=== PATIENT | female | born 1950 | race Caucasian/White ===

== ENCOUNTER 2021-11-12 07:46 | Day surgery (SDC) | payer MEDICARE, BC ==
[~2021-11-12] VITALS: Ht 162.6 cm; Wt 46.4 kg
[~2021-11-12 07:46] MED LIST: ALBU8.5H17 IH; APIX5TAB3 PO; ASPI-1071 PO; CARV6.253 PO; CEFI400C PO; FURO20TA4 PO; LISI2.5T14 PO; POTA10TA37 PO; PRED20TA PO
[2021-11-12] MEDS ORDERED: MIDAZolam 1mg/ml 10ml vial IV ONE (08:15)
[2021-11-12] MEDS ORDERED: fentaNYL/PF 50MCG/1 ML 2ML syringe IV ONE (08:15)
[2021-11-12] MEDS ORDERED: glycopyrrolate 0.2mg/ml inj IV ONE (08:15)
[2021-11-12] MEDS ORDERED: normal saline 1000ml 1,000 ML IV SCH (08:15)
[2021-11-12 08:30] VITALS: BP 149/84
[2021-11-12] MEDS ORDERED: CARV-50 PO (08:47)
[2021-11-12] MEDS ORDERED: ASPI-1397 PO (08:47)
[2021-11-12] MEDS ORDERED: APIX5TAB3 PO (08:47)
[2021-11-12] MEDS ORDERED: CEFI400C PO (08:47)
[2021-11-12] MEDS ORDERED: PRED5TAB PO (08:47)
[2021-11-12] MEDS ORDERED: POTA-192 PO (08:47)
[2021-11-12] MEDS ORDERED: FURO-150 PO (08:47)
--- NOTE | 2021-11-12 09:00 | NUR ---
Dr Romero in with patient. Patient cardioversion cancelled as patient is in sinus rhythm.
--- NOTE | 2021-11-12 09:15 | NUR ---
Patient discharged. Continue home medications as ordered. Explained to her that Dr. Romero's office should be calling her tomorrow to schedule her pacemaker procedure and they will advise her at that time when to stop her eliquis.
== END 2021-11-12 09:15 | disposition home or self-care (01) ==
LOC: SSTAY O 07:46
PROVIDERS: ATTEND Internal Medicine Cardiovascular Disease
DX: I48.0 Paroxysmal atrial fibrillation (principal); Z53.8 Procedure and treatment not carried out for other reasons; J43.9 Emphysema, unspecified; I50.9 Heart failure, unspecified; N18.9 Chronic kidney disease, unspecified; F17.210 Nicotine dependence, cigarettes, uncomplicated; Z87.01 Personal history of pneumonia (recurrent); Z72.89 Other problems related to lifestyle; Z79.899 Other long term (current) drug therapy
CPT/HCPCS: 93005

== ENCOUNTER 2021-11-16 06:39 | Day surgery (SDC) | payer MEDICARE, BC ==
[~2021-11-16] VITALS: Ht 162.6 cm; Wt 47.1 kg
[2021-11-16] VITALS (8 sets, daily range): BP systolic 115–143; BP diastolic 78–91
[~2021-11-16 06:39] MED LIST changes: -ALBU8.5H17 IH; -ASPI-1071 PO; +ASPI-1397 PO; +CARV-50 PO; -CARV6.253 PO; +FURO-150 PO; -FURO20TA4 PO; -LISI2.5T14 PO; +POTA-192 PO; -POTA10TA37 PO; -PRED20TA PO; +PRED5TAB PO
[2021-11-16] MEDS ORDERED: normal saline 1000ml 1,000 ML IV SCH ×2 (07:05→13:15)
[2021-11-16] MEDS ORDERED: VANCOMYCIN 1GM/200ML IVPB 200 ML IV ONE (07:10)
[2021-11-16] MEDS ORDERED: cefazolin/dext.iso 2gm/50ml 50 ML IV ONE (07:10)
[2021-11-16] MEDS ORDERED: LIDOCAINE 2% w/EPI 1:100:000 30mL injection MDV**cath lab 1 only ONE (08:00)
[2021-11-16] MEDS ORDERED: ceFAZolin 1000mg inj ONE (08:00)
[2021-11-16] MEDS ORDERED: midazolam 1 mg/ML 2ml injection ONE ×2 (08:00→09:58)
[2021-11-16] MEDS ORDERED: fentaNYL/PF 50MCG/1 ML 2ML syringe ONE (08:00)
[2021-11-16] MEDS ORDERED: iohexol 350 MG/ML 50ML vial IV ONE (08:04)
[2021-11-16 08:12] LABS: ALBUMIN 3.4 G/DL (3.4-5.0); ANION GAP 11 (8-16); BLOOD UREA NITROGEN 19 MG/DL (7-18); BUN/CREATININE RATIO 21.6 (6.6-38.0); CALCIUM 8.8 MG/DL (8.5-10.1); CHLORIDE 105 MMOL/L (99-107); CREATININE 0.88 MG/DL (0.40-0.90); MAGNESIUM 2.2 MG/DL (1.5-2.4); POTASSIUM 3.9 MMOL/L (3.5-5.1); SODIUM 143 MMOL/L (135-145); eGFR 64 ML/MIN
[2021-11-16 08:15] LABS: GLUCOSE 95 MG/DL (70-104)
[2021-11-16 08:52] LABS: BASOPHILS % (AUTO) 0.7 % (0-1); EOSINOPHILS # (AUTO) 0.1 X10'3 (0-0.9); EOSINOPHILS % (AUTO) 1.1 % (0-6); HEMATOCRIT 39.3 % (35.0-45.0); HEMOGLOBIN 13.2 g/dl (12.0-16.0); LYMPHOCYTES # (AUTO) 1.6 X10'3 (1.1-4.8); LYMPHOCYTES % (AUTO) 26.2 % (21-51); MEAN CORPUSCULAR HEMOGLOBIN 32.5 PG (27.0-31.0); MEAN CORPUSCULAR HGB CONC 33.6 g/dL (33.0-36.5); MEAN CORPUSCULAR VOLUME 96.7 FL (78-98); MONOCYTES # (AUTO) 0.7 X10'3 (0-0.9); MONOCYTES % (AUTO) 11.8 % (2-12); NEUTROPHILS # (AUTO) 3.6 X10'3 (1.8-7.7); NEUTROPHILS % (AUTO) 60.2 % (42-75); PLATELET COUNT 152 X10'3 (140-440); RED BLOOD COUNT 4.06 X10'6 (4.20-5.60); RED CELL DISTRIBUTION WIDTH 14.8 % (11.5-14.5); WHITE BLOOD COUNT 5.9 X10'3 (4.5-11.0)
[2021-11-16] MEDS ORDERED: clindamycin 600mg/D5W 50ml 50 ML IV ONE (09:13)
[2021-11-16] MEDS ORDERED: vancomycin 1,000mg inj ONE (09:13)
== END 2021-11-16 15:10 | disposition home or self-care (01) ==
LOC: SSTAY O 06:39
PROVIDERS: ATTEND Internal Medicine Cardiovascular Disease
DX: I42.0 Dilated cardiomyopathy (principal); I50.23 Acute on chronic systolic (congestive) heart failure; I44.7 Left bundle-branch block, unspecified; Z88.5 Allergy status to narcotic agent; Z88.8 Allergy status to other drugs, medicaments and biological substances; Z88.0 Allergy status to penicillin; Z88.1 Allergy status to other antibiotic agents; F17.210 Nicotine dependence, cigarettes, uncomplicated; Z72.89 Other problems related to lifestyle; Z79.899 Other long term (current) drug therapy
CPT/HCPCS: 33225; 33249; 36415; 71045; 80048; 83735; 85025; 85610; 93005; 93641; 99152; 99153; C1769; C1882; C1887; C1894; C1895; C1900; J0690; J2250; J3010; J3370; J3490; Q9967; A4565; A4620; A6258